=== PATIENT | female | born 1965 | race Caucasian/White ===

== ENCOUNTER 2019-05-20 10:10 | Outpatient (CLI) | payer MEDICAID, SELFPAY ==
--- NOTE | 2019-05-20 | XR_ITS ---
WS: [id number] LEFT HIP HISTORY: LEFT HIP PAIN COMPARISON: 08/24/2017 LEFT hip: No acute fracture or dislocation. Mild narrowing of the hip joint. Small osteophytes with n o bone destruction. No foreign body. XR/XR hip LT 2-3V wo/w pel* [id number] IMPRESSION: 1. No hip fracture. 2. Mild osteoarthritis LEFT hip joint. Similar to 08/24/2017.
== END 2019-05-20 10:11 | disposition home or self-care (01) ==
LOC: RADOUTREAD 16:06
PROVIDERS: Family Provider Family Medicine; Visit Provider Family Medicine
DX: Z76.89 Persons encountering health services in other specified circumstances (principal)

== ENCOUNTER 2019-06-03 09:22 | Outpatient (CLI) | payer MEDICAID, SELFPAY ==
--- NOTE | 2019-06-03 | XR_ITS ---
WS: [id number] PROCEDURE: XR chest 2V* [id number] CLINICAL INFORMATION: LOWER RESPIRATORY INFECTION COMPARISON: None. FINDINGS: Heart: Cardiomegaly. Lungs: Mild chronic emphysematous changes. No acute pulmonary infiltrates. Segmental elevation right hemidiaphragm. Bones: Thoracic scoliosis and kyphosis. Anterior wedging at the thoraco lumbar junction XR/XR chest 2V* [id number] IMPRESSION: 1. Cardiomegaly. 2. No acute pulmonary infiltrates. 3. Segmental elevation hemidiaphragm. 4. Thoracic scoliosis and kyphosis.
== END 2019-06-03 09:23 | disposition home or self-care (01) ==
PROVIDERS: Family Provider Family Medicine; Visit Provider Family Medicine
DX: Z76.89 Persons encountering health services in other specified circumstances (principal)

== ENCOUNTER 2019-11-21 14:55 | Outpatient (CLI) | payer MEDICAID, SELFPAY ==
--- NOTE | 2019-11-21 15:30 | MM_ITS ---
WS: [id number] BILATERAL SCREENING DIGITAL MAMMOGRAM WITH CAD HISTORY: screening COMPARISON: 12/08/2016, 01/15/2018 and 12/07/2015 Bilateral CC and MLO views submitted. Computer aided detection analyzed. Breast composition: There are scattered areas of fibroglandular density. No suspicious masses, microc alcifications or architectural distortion. Scattered asymmetries and calcifications are stable over m ultiple years. MM/[place] [id number] IMPRESSION: BI-RADS: 2-Benign FOLLOW UP: 1 Year Follow-up
== END 2019-11-21 14:56 | disposition home or self-care (01) ==
LOC: RADSHAW 14:58
PROVIDERS: PCP Family Medicine; Visit Provider Obstetrics & Gynecology
DX: Z12.31 Encounter for screening mammogram for malignant neoplasm of breast (principal)
CPT/HCPCS: 77067

== ENCOUNTER 2020-06-15 07:51 | Outpatient (CLI) | payer MEDICAID, SELFPAY ==
--- NOTE | 2020-06-15 08:14 | XR_ITS ---
WS: [id number] HIP WITH PELVIS LEFT TECHNIQUE: 3 views of the left hip with pelvis CLINICAL INFORMATION: OSTEOARTHRITIS LEFT HIP COMPARISON: None. FINDINGS: Moderate to advanced osteoarthritis left hip with joint space narrowing. No acute fractures. Normal h ead and neck are normal. Left pubic rami are normal. XR/XR hip LT 2-3V wo/w pel* [id number] IMPRESSION: Moderate to advanced osteoarthritis left hip with joint space narrowing. No acu te fractures.
== END 2020-06-15 07:52 | disposition home or self-care (01) ==
LOC: RADWPI 07:58
PROVIDERS: PCP Family Medicine; Visit Provider Family Medicine
DX: M16.12 Unilateral primary osteoarthritis, left hip (principal)
CPT/HCPCS: 73502

== ENCOUNTER → 2020-06-16 07:55 | Outpatient (BNVA) | payer MEDICAID, SELFPAY | PROVIDERS: PCP Family Medicine; Visit Provider Specialist | DX: R20.0 Anesthesia of skin (principal); R20.2 Paresthesia of skin; G56.03 Carpal tunnel syndrome, bilateral upper limbs | CPT/HCPCS: 95908; 95910 ==

== ENCOUNTER 2020-11-23 11:08 | Outpatient (CLI) | payer MEDICAID, SELFPAY ==
--- NOTE | 2020-11-23 11:00 | MM_ITS ---
WS: [id number] BILATERAL DIGITAL SCREENING MAMMOGRAPHY WITH CAD CLINICAL INFORMATION: Z12.39 - Encounter for other screening for malignant neop... HISTORY: Screening mammogram. No current complaints. COMPARISON: November 21, 2019 TECHNIQUE: Bilateral CC and MLO views. FINDINGS: Scattered fibroglandular densities bilaterally. Punctate and lucent centered calcifications. Eggshell calcifications. No suspicious focal mass, asymmetry, calcifications, or architectural distortion. No evidence of malignancy. MM/[place] [id number] IMPRESSION: BI-RADS: 2-Benign FOLLOW UP: 1 Year Follow-up Recommend return to annual screening mammography.
== END 2020-11-23 11:09 | disposition home or self-care (01) ==
LOC: RADSHAW 11:10
PROVIDERS: PCP Family Medicine; Visit Provider Obstetrics & Gynecology
DX: Z12.31 Encounter for screening mammogram for malignant neoplasm of breast (principal)
CPT/HCPCS: 77067

== ENCOUNTER 2021-12-01 13:21 | Outpatient (CLI) | payer MEDICAID, SELFPAY ==
--- NOTE | 2021-12-01 13:28 | MM_ITS ---
WS: [id number] BILATERAL 3D TOMOSYNTHESIS DIGITAL SCREENING MAMMOGRAPHY WITH CAD CLINICAL INFORMATION: Z12.39 - Encounter for other screening for malignant neop... HISTORY: Screening mammogram. No current complaints. COMPARISON: November 23, 2020 TECHNIQUE: Bilateral CC and MLO views. FINDINGS: Scattered fibroglandular densities bilaterally. Punctate and lucent centered calcifications. No suspi cious focal mass, asymmetry, calcifications, or architectural distortion. No evidence of malignancy. MM/[place] [id number] IMPRESSION: BI-RADS: 2-Benign FOLLOW UP: 1 Year Follow-up Recommend return to annual screening mammography.
== END 2021-12-01 13:22 | disposition home or self-care (01) ==
LOC: RAD 13:21
PROVIDERS: PCP Family Medicine; Visit Provider Obstetrics & Gynecology
DX: Z12.31 Encounter for screening mammogram for malignant neoplasm of breast (principal)
CPT/HCPCS: 77063; 77067

== ENCOUNTER 2022-01-09 20:59 | Emergency (ER) | payer MEDICAID, SELFPAY ==
--- NOTE | 2022-01-09 21:06 | W.ED.BACK ---
HPI - Back Pain/Injury General: Chief Complaint: Back Pain/Injury Stated Complaint: BACK PAIN Time Seen by Provider: 01/09/22 21:05 History of Present Illness: 56-year-old lady presented with worsening back pain which was atraumatic in onset. Does endorse subjective paresthesias in the left arm however no weakness and sensory is only mildly abnormal or tingling in nature. Denies fevers or other red flag symptoms. No other specific changes in health, exacerbating, or alleviating factors identified. Onset (ago): day(s) Timing: progressively worsening Severity: moderate Exacerbating factors: movement Review of Systems General: Reports: 10 or more systems reviewed and unremarkable except in HPI and below PFSH ED PFSH: Medical History Anxiety Controlled with paroxetine. Hypercholesteremia States that she was diagnosed with elevated cholesterol levels in 2018 on 2018 and is on medication however cannot remember the name. This is managed by her primary care provider Hypothyroidism Diagnosed in April 2019 and is on medication. She follows up with her PMD. Does not have an career developer. No pertinent past medical history Denies diabetes, asthma, hypertension, seizures, DVT/PE PCP: Dr. Gottlieb Surgical History S/P aspiration of abscess From back in 2016 S/P hernia repair 01/26/10- Hernia repair with mesh for, small bowel obstruction secondary to incarcerated ventral wall hernia --- [place] Pined[place] [facility] [place] Horizontal supraumbilical incision. --> Operative report reviewed. Patient had presented to the emergency room with nausea and vomiting and an incarcerated ventral hernia which contained omentum and a loop of jejunum in the hernia sac. Surgery performed was exploratory laparotomy with a transverse incision over the umbilicus with excision of the hernia sac, Partial omentectomy, placement of 3 x 6 of mesh.--> Operative report scanned into EHR. S/P hysterectomy Total abdominal hysterectomy, bilateral salpingo-oophorectomy and lysis of adhesions on 06/25/[address] Denton for uterine fibroids via vertical infraumbilical midline incision. Pathology showed uterine megaly weighing 708 g with multiple fibroids. No other pathology identified. No malignancy or hyperplasia identified. Post postoperative course was complicated by mild superficial wound dehiscence which healed well with wet-to-dry dressings. S/P knee surgery ligament repair in the left knee in 2018. Arthroscopic surgery Family History Grandmother Heart disease maternal Stroke maternal Mother Hyperlipidemia Hypertension Thyroid cancer Heart disease Stroke Father Diabetes Family/Other Diabetes paternal aunt, paternal cousin Breast cancer maternal and paternal cousins; ages at diagnosis unknown Denies family history of Colon cancer Ovarian cancer Anesthesia complication Bleeding disorder Uterine cancer Physical Exam Const: COMMON NORMALS: patient oriented x3 and alert GENERAL APPEARANCE: cooperative and well developed HENMT: COMMON NORMALS: normocephalic and atraumatic HEAD & SCALP: normocephalic and atraumatic Eye: COMMON NORMALS: conjunctivae normal CONJUNCTIVA: Yes conjunctivae normal SCLERA: sclerae normal Neck/C-Spine: COMMON NORMALS: supple GENERAL: Yes trachea midline CERVICAL SPINE: Yes Cervical spine tenderness Resp: COMMON NORMALS: clear to auscultation bilaterally EFFORT & INSPECTION: Yes able to speak in complete sentences AUSCULTATION: clear to auscultation bilaterally Cardio: COMMON NORMALS: regular rate and regular rhythm RATE: regular rate RHYTHM: regular rhythm GI: COMMON NORMALS: Soft to palpation PALPATION: Yes Soft to palpation and No Tenderness to palpation present (GI) PERCUSSION: normal to percussion Back/Pelvis: THORACIC SPINE/UPPER BACK: Yes thoracic spinal tenderness Extremity: GENERAL: Yes normal exam except as noted and No edema Neuro: COMMON NORMALS: patient oriented x3, CN's II-XII intact bilaterally, moves all extremities, no focal motor deficits and no sensory deficits noted SENSORIUM/ORIENTATION: Yes alert and No Orientation impaired Psych: COMMON NORMALS: mental status grossly normal and Normal thought process present THOUGHT PROCESS: Normal thought process present Course Vital Signs: Vital signs: Vital Signs Temperature 98.4 F 01/09/22 21:15 Pulse Rate 74 01/09/22 23:30 Respiratory Rate 19 H 01/09/22 23:30 Blood Pressure 168/89 01/09/22 23:30 Pulse Oximetry 97 01/09/22 23:30 Oxygen Delivery Me thod 01/09/22 21:15 MDM - Back Pain/Injury Medical Decision Making 56-year-old lady presenting with worsening back and neck pain. No red flag symptoms and patient is nontoxic in appearance. No acute cervical spine pathology identified on CT. 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 Certainly this can explain some back pain however radiation of symptoms is inconsistent with this level. Patient improved after ED treatment and satisfactory for outpatient management with follow-up with spine surgery. Strict return precautions and follow-up plan discussed. Medical Records I reviewed the patient's medical records. Labs I reviewed the patient's lab results. Radiology Impressions Cervical Spine CT 01/09/22 21:24 IMPRESSION: No acute fractures or subluxation. Thoracic Spine CT 01/09/22 21:24 IMPRESSION: 1. No acute findings. 2. Splenomegaly. IMPRESSION: 1. Below the T9 vertebral body is a congenital right je vertebral body contributing to moderate lower thoracic dextroconvex scoliosis. The right je vertebral body likely represents the right aspect of T10 with incomplete formation of the left half. At least, moderate left T9-T11 vertebral foramina. 2. No acute abnormalities. Discharge Plan Discharge Patient Disposition: Home Clinical Impression: Back pain Condition: Stable Prescriptions: New oxycodone 5 mg tablet 5 mg PO Q4H PRN (Reason: pain) Qty: 10 0RF No Action levothyroxine PO paroxetine HCl 20 mg tablet 20 mg PO DAILY acetaminophen [Tylenol Extra Strength] 500 mg tablet 500 mg PO Q6H PRN estradiol 1 mg tablet 1 mg PO DAILY 90 Days Qty: 90 3RF oxybutynin chloride 10 mg tablet extended release 24 hr 10 mg PO DAILY Qty: 90 3RF nystatin 100,000 unit/gram powder 1 applic topical BID Qty: 15 0RF Rx Instructions: Apply to affected area ibuprofen 200 mg capsule 200 mg PO Q6H PRN atorvastatin [Lipitor] PO Discharge Orders: Discharge ED (Routine); Ordered 01/09/22 Ordered By: Radu Sen Referrals: Frank Gottlieb MD [Primary Care Provider] - Discharge Diet: Usual diet Discharge Activity: Increase activity as tolerated Patient Instructions: Back Pain (ED), Opioid Safety, Pain Management Activity Restrictions/Additional Instructions: Thank you for visiting the emergency department. You were seen evaluated for back pain. The exact cause of your symptoms is unclear that you do appear to have congenital abnormalities as discussed which may be contributing. I will message case management for follow-up with orthopedic spine. Please follow-up with your primary care provider. Return to the emergency department for worsening symptoms or any new neurologic symptoms, or anything else that you are concerned about and feel needs emergency department evaluation. Coding Level of Care Code ED [employer] Supervisor for Anne Garcia
[2022-01-09 21:15] VITALS: BP 191/67; PULSE 80; RESP 18; TEMP 36.9; O2SAT 98; BMI 48.8
--- NOTE | 2022-01-09 21:24 | CTR_ITS ---
PROCEDURE INFORMATION: Exam: CT Chest Without Contrast; Diagnostic Exam date and time: 01/09/2022 10:01 PM Age: 56 years old Clinical indication: Pain in thoracic spine; Additional info: Midline high t spine pain TECHNIQUE: Imaging protocol: Diagnostic computed tomography of the chest without contrast. COMPARISON: 1. CT cervical spin wo con* [id number] 2022-01-09 21:57 2. CR XR chest 2V* [id number] 2019-06-03 09:22 FINDINGS: Limitations: Limited by large body habitus. Lungs: Minimal subsegmental dependent pulmonary atelectasis. Pleural spaces: Unremarkable. No pneumothorax. No pleural effusion. Heart: Excessive pericardial fat pad. Mild cardiac enlargement. Lymph nodes: Unremarkable. No enlarged lymph nodes. Vasculature: Mild pulmonary artery enlargement. Spleen: Splenomegaly. Bones/joints: Congenital a incomplete formation of the left je T10 with a congenital right je T10 vertebral body contributing to scoliosis. Soft tissues: Unremarkable. PROCEDURE INFORMATION: Exam: CT Thoracic Spine Without Contrast Exam date and time: 01/09/2022 10:01 PM Age: 56 years old Clinical indication: Pain in thoracic spine; Additional info: Midline high t spine pain TECHNIQUE: Imaging protocol: Computed tomography of the thoracic spine without contrast. Radiation optimization: All CT scans at this facility use at least one of these dose optimization techniques: automated exposure control; mA and/or kV adjustment per patient size (includes targeted exams where dose is matched to clinical indication); or iterative reconstruction. COMPARISON: 1. CT cervical spin wo con* [id number] 2022-01-09 21:57 2. CR XR chest 2V* [id number] 2019-06-03 09:22 RADIATION DOSE METRICS: Total DLP (mGy-cm): 1224.41 FINDINGS: Bones/joints: T6 vertebral osseous hemangioma. Below the T9 vertebral body is a congenital right je vertebral body contributing to moderate lower thoracic dextroconvex scoliosis. The right je vertebral body likely represents the right aspect of T10 with incomplete formation of the left half. At least, moderate left T9-T11 vertebral foramina. Congenital accessory right je vertebral body below the T9 vertebrae causing scoliosis. Additionally contributes to left-sided foraminal stenosis at T9-T11. T9-T10 central disc protrusion causes mild stenosis. Soft tissues: Unremarkable. CT/CT thoracic spin wo con* [id number] IMPRESSION: 1. No acute findings. 2. Splenomegaly. IMPRESSION: 1. Below the T9 vertebral body is a congenital right je vertebral body contributing to moderate lower thoracic dextroconvex scoliosis. The right je vertebral body likely represents the right aspect of T10 with incomplete formation of the left half. At least, moderate left T9-T11 vertebral foramina. 2. No acute abnormalities.
--- NOTE | 2022-01-09 21:24 | CTR_ITS ---
PROCEDURE INFORMATION: Exam: CT Cervical Spine Without Contrast Exam date and time: 01/09/2022 9:57 PM Age: 56 years old Clinical indication: Neck pain; Additional info: Neck pain, parasthesias L arm TECHNIQUE: Imaging protocol: Computed tomography of the cervical spine without contrast. Radiation optimization: All CT scans at this facility use at least one of these dose optimization techniques: automated exposure control; mA and/or kV adjustment per patient size (includes targeted exams where dose is matched to clinical indication); or iterative reconstruction. COMPARISON: CR XR chest 2V* [id number] 2019-06-03 09:22 RADIATION DOSE METRICS: Total DLP (mGy-cm): 308.67 FINDINGS: Bones/joints: Mild reversal of the cervical curvature. Multilevel mild moderate spinal/foraminal stenosis. Prominent right C2-C3 degenerative facet arthropathy. Maintained cervical vertebral body heights and alignments. No acute fractures or subluxation. Lungs: Lung apices are normal. Soft tissues: Unremarkable. CT/CT cervical spin wo con* [id number] IMPRESSION: No acute fractures or subluxation.
[2022-01-09] MEDS: ketorolac 30 mg/mL INJ IM (21:55)
[2022-01-09] MEDS: acetaminophen 500 mg Tablet 1000 MG PO (21:55)
[2022-01-09] MEDS: lidocaine 5% Patch 1 PATCH TOPICAL (21:55)
[2022-01-09 21:56] VITALS: RESP 18; O2SAT 98
[2022-01-09] MEDS: oxyCODONE 5 mg IR Tab/Cap PO (21:56)
[2022-01-09 23:30] VITALS: BP 168/89; PULSE 74; RESP 19; O2SAT 97
--- NOTE | 2022-01-10 08:34 | DCPLANNER ---
Addendum entered by Starr Sellers 01/11/22 14:06: Patient had a follow up appointment scheduled with ortho - patient did attend appointment. Original Note: living manager had message to schedule a follow up appointment for patient with ortho. living manager sent patients information to the front office staff at ortho. Patients information will be printed and reviewed. Clinic will call patient with appointment information.
== END 2022-01-09 23:31 | disposition home or self-care (01) ==
PROVIDERS: Emergency Provider Emergency Medicine; PCP Family Medicine
DX: M54.9 Dorsalgia, unspecified (principal)
CPT/HCPCS: 72125; 72128; 96372; 99284; J1885

== ENCOUNTER → 2022-01-11 07:43 | Outpatient (BNVA) | payer MEDICAID, SELFPAY | PROVIDERS: PCP Family Medicine; Referring Provider Emergency Medicine; Visit Provider Physician Assistant | DX: Q76.49 Other congenital malformations of spine, not associated with scoliosis (principal); M47.22 Other spondylosis with radiculopathy, cervical region; M54.6 Pain in thoracic spine; M47.816 Spondylosis without myelopathy or radiculopathy, lumbar region; M41.9 Scoliosis, unspecified; M40.56 Lordosis, unspecified, lumbar region; M47.814 Spondylosis without myelopathy or radiculopathy, thoracic region | CPT/HCPCS: 72072; 72110; 99203; 99204 ==

== ENCOUNTER → 2022-06-29 08:40 | Outpatient (BNVA) | payer MEDICAID, SELFPAY | PROVIDERS: PCP Family Medicine; Visit Provider Podiatrist Foot & Ankle Surgery | DX: B35.1 Tinea unguium (principal); L60.3 Nail dystrophy; L60.8 Other nail disorders | CPT/HCPCS: 99203; 99213 ==

== ENCOUNTER 2022-10-17 09:01 | Outpatient (CLI) | payer MEDICAID, SELFPAY ==
--- NOTE | 2022-10-17 09:13 | XRR_ITS ---
PROCEDURE INFORMATION: Exam: XR Right Shoulder Exam date and time: 10/17/2022 9:34 AM Age: 57 years old Clinical indication: Pain; Shoulder; Right; Additional info: Inpingement syndrome of the right shoulder TECHNIQUE: Imaging protocol: Radiologic exam of the right shoulder. Views: 2 or more views. COMPARISON: CT thoracic spin wo con* [id number] 01/09/2022 10:01 PM FINDINGS: Bones/joints: The humeral head and glenoid show sclerotic densities corresponding to moderate osteoarthritis Soft tissues: Normal. XR/XR shoulder RT min 2V* [id number] IMPRESSION: 1. Negative for acute bony abnormality 2. Moderate osteoarthritis of the glenohumeral joint
--- NOTE | 2022-10-17 09:15 | XRR_ITS ---
PROCEDURE INFORMATION: Exam: XR Left Knee Exam date and time: 10/17/2022 9:37 AM Age: 57 years old Clinical indication: Pain; Knee; Left; Additional info: Left knee joint pain TECHNIQUE: Imaging protocol: Radiologic exam of the left knee. Views: 3 views. COMPARISON: CR XR knee LT 3V* [id number] 08/01/2017 10:12 AM FINDINGS: Bones/joints: There is moderate osteoarthritis with tricompartmental narrowing Soft tissues: Normal. XR/XR knee LT 3V* [id number] IMPRESSION: 1. Moderate osteoarthritis 2. Otherwise No acute findings.
== END 2022-10-17 09:02 | disposition home or self-care (01) ==
LOC: RAD 09:04
PROVIDERS: PCP Family Medicine; Visit Provider Family Medicine
DX: M75.41 Impingement syndrome of right shoulder (principal); M17.12 Unilateral primary osteoarthritis, left knee; M19.011 Primary osteoarthritis, right shoulder
CPT/HCPCS: 73030; 73562

== ENCOUNTER → 2022-11-14 08:10 | Outpatient (BNVA) | payer MEDICAID, SELFPAY | PROVIDERS: PCP Family Medicine; Visit Provider Podiatrist Foot & Ankle Surgery | DX: B35.1 Tinea unguium (principal); I73.9 Peripheral vascular disease, unspecified; L60.3 Nail dystrophy | CPT/HCPCS: 11721 ==

== ENCOUNTER 2022-12-30 08:14 | Outpatient (CLI) | payer MEDICAID, SELFPAY ==
--- NOTE | 2022-12-30 08:17 | MM_ITS ---
WS: [id number] BILATERAL SCREENING DIGITAL TOMOSYNTHESIS MAMMOGRAM WITH CAD HISTORY: SCREENING COMPARISON: 12/01/2021, 11/23/2020 Bilateral CC and MLO views with tomosynthesis and synthetic mammography submitted. Computer aided det ection analyzed. Breast composition: The breasts are heterogeneously dense, which may obscure small masses. No suspici ous masses, microcalcifications or architectural distortion. There are benign round calcifications wi thin each breast. IMPRESSION: MM/[place] [id number] BI-RADS: 2-Benign FOLLOW UP: 1 Year Follow-up
== END 2022-12-30 08:15 | disposition home or self-care (01) ==
LOC: MOBLMAM 08:16
PROVIDERS: PCP Family Medicine; Visit Provider Family Medicine
DX: Z12.31 Encounter for screening mammogram for malignant neoplasm of breast (principal)
CPT/HCPCS: 77063; 77067

== ENCOUNTER → 2023-01-16 07:43 | Outpatient (BNVA) | payer MEDICAID, SELFPAY | PROVIDERS: PCP Family Medicine; Visit Provider Podiatrist Foot & Ankle Surgery | DX: B35.1 Tinea unguium (principal); I73.9 Peripheral vascular disease, unspecified; L60.3 Nail dystrophy | CPT/HCPCS: 11721 ==

== ENCOUNTER → 2023-03-14 13:20 | Outpatient (BNVA) | payer MEDICAID, SELFPAY | PROVIDERS: PCP Family Medicine; Referring Provider Family Medicine; Visit Provider Specialist | DX: G56.03 Carpal tunnel syndrome, bilateral upper limbs (principal); M47.22 Other spondylosis with radiculopathy, cervical region; M25.511 Pain in right shoulder | CPT/HCPCS: 95910 ==

== ENCOUNTER → 2023-03-20 07:31 | Outpatient (BNVA) | payer MEDICAID, SELFPAY | PROVIDERS: PCP Family Medicine; Visit Provider Podiatrist Foot & Ankle Surgery | DX: B35.1 Tinea unguium (principal); I73.9 Peripheral vascular disease, unspecified; L60.3 Nail dystrophy; S90.852A Superficial foreign body, left foot, initial encounter; W25.XXXA Contact with sharp glass, initial encounter | CPT/HCPCS: 10120; 11721 ==

== ENCOUNTER → 2023-06-19 07:50 | Outpatient (BNVA) | payer MEDICAID, SELFPAY | PROVIDERS: PCP Family Medicine; Visit Provider Podiatrist Foot & Ankle Surgery | DX: B35.1 Tinea unguium (principal); I73.9 Peripheral vascular disease, unspecified; L60.3 Nail dystrophy | CPT/HCPCS: 99213 ==

== ENCOUNTER 2024-01-03 08:17 | Outpatient (CLI) | payer MEDICAID, SELFPAY ==
--- NOTE | 2024-01-03 08:30 | MM_ITS ---
WS: [id number] BILATERAL SCREENING DIGITAL TOMOSYNTHESIS MAMMOGRAM WITH CAD HISTORY: Z12.31 - Encounter for screening mammogram for malignant ... COMPARISON: 12/30/2022, 12/01/2021 Bilateral CC and MLO views with tomosynthesis and synthetic mammography submitted. Computer aided det ection analyzed. Breast composition: There are scattered areas of fibroglandular density. No suspicious masses, microc alcifications or architectural distortion. Numerous scattered asymmetries and calcifications are stab le. No areas of distortion. MM/MM scr tomosynthesis [id number] IMPRESSION: BI-RADS: 2 - Benign. FOLLOW UP: 1 Year Follow-up
== END 2024-01-03 08:18 | disposition home or self-care (01) ==
PROVIDERS: PCP Family Medicine; Visit Provider Obstetrics & Gynecology
DX: Z12.31 Encounter for screening mammogram for malignant neoplasm of breast (principal); R92.323 Mammographic fibroglandular density, bilateral breasts; N64.89 Other specified disorders of breast; R92.1 Mammographic calcification found on diagnostic imaging of breast
CPT/HCPCS: 77063; 77067

== ENCOUNTER → 2024-03-20 07:42 | Outpatient (BNVA) | payer MEDICAID, SELFPAY | PROVIDERS: PCP Family Medicine; Visit Provider Podiatrist Foot & Ankle Surgery | DX: B35.1 Tinea unguium (principal); I73.9 Peripheral vascular disease, unspecified; L60.3 Nail dystrophy | CPT/HCPCS: 99213 ==

== ENCOUNTER → 2024-05-27 08:21 | Outpatient (BNVA) | payer MEDICAID, SELFPAY | PROVIDERS: PCP Family Medicine; Visit Provider Student in an Organized Health Care Education/Training Program | DX: Z12.11 Encounter for screening for malignant neoplasm of colon (principal) | CPT/HCPCS: 99024; 99204 ==

== ENCOUNTER 2024-06-18 07:21 | Day surgery (SDC) | payer MEDICAID, SELFPAY ==
[2024-06-18 07:47] VITALS: BP 167/79; PULSE 84; RESP 16; TEMP 36.7; O2SAT 94; BMI 46.6
[2024-06-18] MEDS: sodium chloride 0.9% 1,000 ML 30 ML IV (08:01)
--- NOTE | 2024-06-18 08:26 | ANES.PREANE2 ---
Pre-Anesthetic Assessment Height/Weight: Height 1.52 m Weight 108.409 kg Temp Pulse Resp BP Pulse Ox O2 Del Method 98.1 F 84 16 167/79 94 Room Air 06/18/24 07:47 06/18/24 07:47 06/18/24 07:47 06/18/24 07:47 06/18/24 07:47 06/18/24 07:47 Operation Date: 06/18/24 08:45 Proposed Procedures p Colonoscopy [id number], G0121, Z12.11(Not Applicable) - Dragan Santos MD Familial anesthetic complications: None Was Beta Medina taken within 24 hours: N/A Was Clonidine taken within 24 hours: N/A Last intake: Intake Last Liquid Date 06/18/24 Last Liquid Time 12:00 Last Solid Date 06/16/24 Last Solid Time 08:00 Social No alcohol and No tobacco Exam alert, oriented x 3, clear to auscultation bilaterally and regular rate & rhythm Airway Submandibular: within normal limits Cervical ROM: within normal limits Mallampati: Class III Comments: Comments: Poor dentition, recently had some teeth oulled History/ROS No significant history except as noted and No significant complaints Pulmonary Exertional Dyspnea and Sleep Apnea (Does not wear CPAP) CV/HEM Hypertension and Peripheral Vascular Disease None reported Hepatic None reported GI Hernia repair Metabolic Hyperlipidemia, Morbid Obesity and Thyroid Disease Musc/skel Lower Back Pain and Osteoarthritis/DJD (Left hip and right arm pain) Neuropsych Anxiety, Depression and Neuropathy Anesthetic Plan ASA status: 3 Anesthesia: Anesthesia Evaluation and General Risk of > 500 ml blood loss (7ml/kg in children): No Medications/Allergies Home Medications ?Medication ?Instructions ?Recorded ?Confirmed ?Last Taken ?Type acetaminophen 500 mg tablet 500 mg PO Q6H PRN Pain 09/23/19 06/13/24 06/13/24 History (Tylenol Extra Strength) paroxetine HCl 20 mg tablet 20 mg PO DAILY 09/23/19 06/13/24 06/13/24 History estradiol 1 mg tablet 1 mg PO DAILY 3 months #90 tabs 11/14/23 06/13/24 06/13/24 Rx atorvastatin [Lipitor] 40 mg PO DAILY 05/27/24 06/13/24 06/13/24 History levothyroxine 88 mcg tablet 88 mcg PO DAILY 06/13/24 06/13/24 06/13/24 History oxybutynin chloride 10 mg 20 mg PO DAILY 06/13/24 06/13/24 06/13/24 History tablet,extended release 24 hr Allergies Allergy/AdvReac Type Severity Reaction Status Date / Time Sulfa (Sulfonamide Allergy rash Verified 06/18/24 07:38 Antibiotics) Current Medications Generic Name Dose Route Start Last Admin Trade Name Love PRN Reason Stop Dose Admin Sodium Chloride 1,000 mls @ 30 mls/hr 06/18/24 07:45 06/18/24 08:01 Sodium Chloride 0.9% IV 30 mls/hr .Q24H JOSETTE Administration PFSH Anesthesia Medical History Hypothyroidism Diagnosed in April 2019 and is on medication. She follows up with her PMD. 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 Hypercholesteremia States that she was diagnosed with elevated cholesterol levels in 2018 on 2018 and is on medication however cannot remember the name. This is managed by her primary care provider No pertinent past medical history Denies diabetes, asthma, hypertension, seizures, DVT/PE PCP: Dr. Gottlieb Anxiety Controlled with paroxetine. Surgical History S/P knee surgery ligament repair in the left knee in 2018. Arthroscopic surgery S/P aspiration of abscess From back in 2017 S/P hernia repair 01/26/10- Hernia repair with mesh for, small bowel obstruction secondary to incarcerated ventral wall hernia --- Performed [place] Dr Pineda at [facility] [place], [place]. Horizontal supraumbilical incision. --> Operative report reviewed. Patient had presented to the emergency room with nausea and vomiting and an incarcerated ventral hernia which contained omentum and a loop of jejunum in the hernia sac. Surgery performed was exploratory laparotomy with a transverse incision over the umbilicus with excision of the hernia sac, Partial omentectomy, placement of 3 x 6 of mesh.--> Operative report scanned into EHR. S/P hysterectomy Total abdominal hysterectomy, bilateral salpingo-oophorectomy and lysis of adhesions on 06/25/[address] Denton for uterine fibroids via vertical infraumbilical midline incision. Pathology showed uterine megaly weighing 708 g with multiple fibroids. No other pathology identified. No malignancy or hyperplasia identified. Post postoperative course was complicated by mild superficial wound dehiscence which healed well with wet-to-dry dressings. Family History Grandmother Heart disease maternal Stroke maternal Mother Hyperlipidemia Hypertension Thyroid cancer Heart disease Stroke Father Diabetes Family/Other Diabetes paternal aunt, paternal cousin Breast cancer maternal and paternal cousins; ages at diagnosis unknown Denies family history of Colon cancer Ovarian cancer Anesthesia complication Bleeding disorder Uterine cancer Social History Smoking and tobacco/nicotine status: never used tobacco/nicotine Substance/Drug Use: never Data Anesthesia Cardiac Studies: No Data to Display
--- NOTE | 2024-06-18 08:32 | W.PM.OPSUD ---
Surgery/Procedure H&P Update DATE OF PROCEDURE: June 18, 2024 DATE H&P PERFORMED: 05/27/24 H&P UPDATE INFORMATION: I have reviewed H&P completed within last 30 days, I have examined patient prior to procedure and No changes to prior documentation PLANNED PROCEDURE: Operation Date: 06/18/24 08:45 Proposed Procedures p Colonoscopy [id number], G0121, Z12.11(Not Applicable) - Dragan Santos MD
[2024-06-18 08:55] VITALS: BP 139/72; PULSE 72; RESP 12; TEMP 36.6; O2SAT 98
[2024-06-18 09:04] VITALS: BP 175/84; PULSE 72; RESP 18; O2SAT 99
--- NOTE | 2024-06-18 09:22 | ANE.PACU2 ---
Inpatient post-anesthesia follow up: Airway intact: Yes Vital signs: Temperature 97.8 F Pulse Rate 72 Respiratory Rate 18 Blood Pressure 175/84 Pulse Oximetry 99 Oxygen Delivery Me thod Room Air Oxygen Flow Rate Fraction of Inspir ed Oxygen Hydration adequate: Yes Nausea and vomiting: No Pain level: 1 Mental status: Baseline
== END 2024-06-18 09:22 | disposition home or self-care (01) ==
PROVIDERS: PCP Family Medicine; Visit Provider Student in an Organized Health Care Education/Training Program
PROC: 0DJD8ZZ Inspection of Lower Intestinal Tract, Via Natural or Artificial Opening Endoscopic (ICD-10-PCS; CPT 45330; 2024-06-18 08:45)
DX: Z12.11 Encounter for screening for malignant neoplasm of colon (principal); K08.409 Partial loss of teeth, unspecified cause, unspecified class; E03.9 Hypothyroidism, unspecified; F41.9 Anxiety disorder, unspecified; E78.00 Pure hypercholesterolemia, unspecified; E66.01 Morbid (severe) obesity due to excess calories; Z68.42 Body mass index [BMI] 45.0-49.9, adult; I73.9 Peripheral vascular disease, unspecified; Z79.899 Other long term (current) drug therapy; Z79.890 Hormone replacement therapy; Z88.2 Allergy status to sulfonamides
CPT/HCPCS: 45330; J2704; J7030

== ENCOUNTER → 2024-07-04 09:44 | Outpatient (BNVA) | payer MEDICAID, SELFPAY | PROVIDERS: PCP Family Medicine; Visit Provider Student in an Organized Health Care Education/Training Program | DX: Z09 Encounter for follow-up examination after completed treatment for conditions other than malignant neoplasm (principal) | CPT/HCPCS: 99213 ==

== ENCOUNTER → 2024-09-20 07:46 | Outpatient (BNVA) | payer MEDICAID, SELFPAY | PROVIDERS: PCP Family Medicine; Visit Provider Physician Assistant | DX: M25.511 Pain in right shoulder (principal); M75.41 Impingement syndrome of right shoulder; M19.011 Primary osteoarthritis, right shoulder | CPT/HCPCS: 20610; 73030; 99203; J3301; J9999 ==

== ENCOUNTER → 2024-11-15 07:50 | Outpatient (BNVA) | payer MEDICAID, SELFPAY | PROVIDERS: PCP Family Medicine; Visit Provider Physician Assistant | DX: M75.41 Impingement syndrome of right shoulder (principal); M19.011 Primary osteoarthritis, right shoulder | CPT/HCPCS: 99213 ==

== ENCOUNTER → 2025-01-10 07:50 | Outpatient (BNVA) | payer MEDICAID, SELFPAY | PROVIDERS: PCP Family Medicine; Visit Provider Physician Assistant | DX: M19.011 Primary osteoarthritis, right shoulder (principal); M75.41 Impingement syndrome of right shoulder | CPT/HCPCS: 20610; 99213; J3301; J9999 ==

== ENCOUNTER → 2025-01-31 07:46 | Outpatient (BNVA) | payer MEDICAID, SELFPAY | PROVIDERS: PCP Family Medicine; Visit Provider Physician Assistant | DX: M16.12 Unilateral primary osteoarthritis, left hip (principal) | CPT/HCPCS: 73502; 99213 ==

== ENCOUNTER 2025-03-04 09:01 | Outpatient (CLI) | payer MEDICAID, SELFPAY ==
--- NOTE | 2025-03-04 09:12 | MM_ITS ---
WS: [id number] BILATERAL 3D TOMOSYNTHESIS DIGITAL SCREENING MAMMOGRAPHY WITH CAD CLINICAL INFORMATION: SCREENING HISTORY: Screening mammogram. No current complaints. COMPARISON: 2023 TECHNIQUE: Bilateral CC and MLO views. FINDINGS: Scattered fibroglandular densities bilaterally. No suspicious focal mass, asymmetry, calcifications, or architectural distortion. No evidence of malignancy. Punctate and lucent centered calcifications. MM/MM scr tomosynthesis [id number] IMPRESSION: DENSITY: There are scattered areas of fibroglandular density. BI-RADS: 2 - Benign. FOLLOW UP: 1 Year Follow-up Recommend return to annual screening mammography.
== END 2025-03-04 09:02 | disposition home or self-care (01) ==
LOC: RAD 09:02
PROVIDERS: PCP Family Medicine; Visit Provider Family Medicine
DX: Z12.31 Encounter for screening mammogram for malignant neoplasm of breast (principal); R92.323 Mammographic fibroglandular density, bilateral breasts; R92.1 Mammographic calcification found on diagnostic imaging of breast
CPT/HCPCS: 77063; 77067

== ENCOUNTER → 2025-03-07 09:56 | Outpatient (BNVA) | payer MEDICAID, SELFPAY | PROVIDERS: PCP Family Medicine; Visit Provider Student in an Organized Health Care Education/Training Program | DX: M16.12 Unilateral primary osteoarthritis, left hip (principal); Z71.89 Other specified counseling | CPT/HCPCS: 20610; 77002; J3301; J9999 ==